=== PATIENT | female | born 1990 | race Two or more races ===

== ENCOUNTER 2023-09-17 19:55 | Emergency (ER) | payer OTHER ==
[~2023-09-17] VITALS: Ht 167.6 cm; Wt 104.0 kg
[2023-09-17] MEDS ORDERED: ACETAMINOPHEN 500 MG TAB PO ONE (20:15)
[2023-09-17] MEDS ORDERED: ONDANSETRON HCL 4 MG/2 ML VIAL IM ONE (20:30)
[2023-09-17 21:41] VITALS: BP 129/80
[2023-09-17 21:42] VITALS: PULSE 107; RESP 20; O2SAT 94
[2023-09-17 21:42] LABS: Alanine Aminotransferase 11 U/L (7-40); Albumin 4.6 g/dL (3.2-4.8); Alkaline Phosphatase 105 U/L (46-116); Anion Gap 9 (5-15); Aspartate Aminotransferase 8 U/L (13-40); BUN/Creatinine Ratio 6.4 (10.0-20.0); Blood Urea Nitrogen 5 mg/dL (9-23); Calcium 9.6 mg/dL (8.7-10.4); Carbon Dioxide 23 mmol/L (20-30); Chloride 107 mmol/L (98-107); Lipase 58 U/L (12-53); Potassium 3.9 mmol/L (3.5-5.1); Sodium 139 mmol/L (136-145)
[2023-09-17 21:43] LABS: Bilirubin, Total 0.5 mg/dL (0.2-1.0); Total Protein 8.4 g/dL (5.7-8.2)
[2023-09-17 21:49] VITALS: TEMP 98.8
[2023-09-17 21:50] LABS: Basophils # (auto) 0 10 ^3/uL (0-0.2); Basophils % (auto) 0.5 % (0.0-2.0); Eosinophils # (auto) 0.1 10 ^3/uL (0-0.8); Eosinophils % (auto) 2.7 % (0.0-7.0); Hematocrit 41.5 % (36.0-46.0); Hemoglobin 13.9 g/dL (12.2-16.2); Lymphocytes # (auto) 1.3 10 ^3/uL (0.4-5.4); Lymphocytes % (auto) 23.5 % (10.0-50.0); Mean Corpuscular Hemoglobin 30.2 pg (28.0-32.0); Mean Corpuscular Hgb Conc. 33.5 g/dL (32.0-36.0); Mean Corpuscular Volume 90.1 fL (80.0-100.0); Monocytes # (auto) 0.4 10 ^3/uL (0-1.3); Monocytes % (auto) 8.2 % (0.0-12.0); Neutrophils # (auto) 3.5 10 ^3/uL (1.6-8.6); Neutrophils % (auto) 65.1 % (37.0-80.0); Nucleated Red Blood Cells % 0.7 %; Red Cell Distribution Width 14.9 % (11.8-14.3); White Blood Cell 5.4 10^3/uL (4.4-10.8)
[2023-09-17 22:35] LABS: Glucose 84 mg/dL (74-106)
== END 2023-09-18 01:05 | disposition left against medical advice (07) ==
LOC: ER 19:57
DX: R10.13 Epigastric pain (principal); R10.2 Pelvic and perineal pain; R11.2 Nausea with vomiting, unspecified
CPT/HCPCS: 36415; 80053; 83690; 84702; 85025; 96372; 99283; J2405

== ENCOUNTER 2024-04-03 14:23 | Emergency (ER) | payer OTHER ==
[~2024-04-03] VITALS: Ht 162.6 cm; Wt 101.9 kg
[2024-04-03 15:49] LABS: Basophils # (auto) 0.1 10 ^3/uL (0-0.2); Eosinophils # (auto) 0.1 10 ^3/uL (0-0.8); Hemoglobin 13.1 g/dL (12.2-16.2); Lymphocytes # (auto) 1.8 10 ^3/uL (0.4-5.4); Mean Corpuscular Hemoglobin 28.8 pg (28.0-32.0); Monocytes # (auto) 0.5 10 ^3/uL (0-1.3); Red Cell Distribution Width 14.1 % (11.8-14.3); White Blood Cell 7.5 10^3/uL (4.4-10.8)
[2024-04-03 15:51] LABS: Basophils % (auto) 1.1 % (0.0-2.0); Eosinophils % (auto) 0.8 % (0.0-7.0); Hematocrit 40.5 % (36.0-46.0); Lymphocytes % (auto) 24.3 % (10.0-50.0); Mean Corpuscular Hgb Conc. 32.4 g/dL (32.0-36.0); Mean Corpuscular Volume 88.9 fL (80.0-100.0); Monocytes % (auto) 7.1 % (0.0-12.0); Neutrophils % (auto) 66.7 % (37.0-80.0); Red Blood Cells 4.56 10^6/uL (4.0-5.20)
[2024-04-03 15:58] LABS: Alanine Aminotransferase 12 U/L (7-40); Albumin 4.7 g/dL (3.2-4.8); Alkaline Phosphatase 82 U/L (46-116); Anion Gap 11 (5-15); Aspartate Aminotransferase 21 U/L (13-40); BUN/Creatinine Ratio 9.9 (10.0-20.0); Blood Urea Nitrogen 7 mg/dL (9-23); Calcium 9.7 mg/dL (8.5-10.1); Carbon Dioxide 23 mmol/L (20-30); Chloride 105 mmol/L (98-107); Glucose 92 mg/dL (74-106); Potassium 4.1 mmol/L (3.5-5.1); Sodium 139 mmol/L (136-145); Total Protein 8.5 g/dL (5.7-8.2)
[2024-04-03 17:38] VITALS: BP 154/79; PULSE 88; RESP 16; TEMP 99.1; O2SAT 100
[2024-04-03] MEDS ORDERED: ATEN-60 PO (21:42)
[2024-04-03] MEDS: ATENOLOL 25 MG TAB PO ONE (22:06)
== END 2024-04-03 22:06 | disposition home or self-care (01) ==
LOC: ER 14:23
DX: R00.2 Palpitations (principal); F41.9 Anxiety disorder, unspecified
CPT/HCPCS: 36415; 71045; 80053; 84484; 85025; 93005

== ENCOUNTER 2024-06-28 20:46 | Emergency (ER) | payer OTHER ==
[~2024-06-28 20:46] MED LIST: ATEN-60 PO
== END 2024-06-28 20:58 | disposition left against medical advice (07) ==
LOC: ER 20:46
DX: R07.0 Pain in throat (principal); Z53.21 Procedure and treatment not carried out due to patient leaving prior to being seen by health care provider

== ENCOUNTER 2025-07-14 22:51 | Inpatient (IN) | payer OTHER ==
[~2025-07-14] VITALS: Ht 162.6 cm; Wt 109.4 kg
--- NOTE | 2025-07-15 00:22 | ED.PDOC ---
GI ASSESSMENT HPI Comments 34-year-old female who came to ER for abdominal pain. Patient states for the past 3 days, she has been having cramping abdominal pain, associated with bouts of nausea vomiting and diarrhea. Earlier today she noted bright red blood with her stools. She went to urgent Care for checkup, found out that she is cu rrently , , approximately 4-5 weeks by LMP. Tested also positive for UTI, hyponatremia and hypokalemia. She denies any vaginal bleeding REVIEW OF SYSTEMS: No fever, no chills, or fatigue HEENT: No sore throat, no earache, no congestion, no neck pain. Cardiac: No chest pain. No palpitations. Lungs: No shortness of breath, no cough. GI: (+) nausea, (+) vomiting, (+) diarrhea, no constipation, (+) abdominal pain, (+) hematochezia : No dysuria, frequency, or urgency. No hematuria. Musculoskeletal: No joint pain , no joint swelling, no extremity edema. Skin: No rash, no itching. Neuro: No headache, no dizziness, no weakness Physical exam General: Awake, alert and oriented. No acute distress. Skin: Skin in warm, dry and intact. Appropriate color for ethnicity. Nailbeds pink with no cyanosis. HEENT: The head is normocephalic and atraumatic. Conjunctivae are clear without exudates or hemorrhage. Sclera is non-icteric. EOM are intact. No signs of nystagmus. Eyelids are normal in appearance without swelling or lesions. Oral mucosa is pink and moist Neck: The neck is supple with normal range of motion. No JVD. Cardiac: Heart rate and rhythm are normal. No murmurs, gallops, or rubs are auscultated. Respiratory: No signs of respiratory distress. Lung sounds are clear in all lobes bilaterally without rales, rhonchi, or wheezes. Abdominal: Abdomen is soft, non-tender without distention. Bowel sounds are present and normoactive in all four quadrants. Extremities: Upper and lower extremities are atraumatic in appearance without deformity or edema. Neurological: The patient is awake, alert and oriented to person, place, and time with normal speech. Speech is clear. There is no facial asymmetry. Psychiatric: Appropriate mood and affect. Good judgement and insight. No visual or auditory hallucinations. Chief Complaint: Abdominal Pain Time Seen by MD: 00:21 Reviewed Notes: Nurses Notes Allergies: Coded Allergies: NO KNOWN ALLERGIES (Unverified , 09/17/23) Home Meds Active Scripts Atenolol (Atenolol) 25 Mg Tab, 1 TAB PO DAILY, #90 TAB 3 Refills Prov:OTIS RODGERS MD 04/03/24 Information Source: Patient Mode of Arrival: Ambulatory Timing: Days Duration: Intermittent Quality: Cramping Past Medical History PAST MEDICAL HISTORY: Denies Surgical History: SENIOR OPERATIONS MANAGER History: No Pertinent SENIOR OPERATIONS MANAGER History 8 Para 5 LMP June 09, 2025 Family History Family History: Reviewed,noncontributory to illness, No family hx of Cancer, No family hx of DM, No family hx of Heart macy, No family hx of HTN, No family hx ofKidney macy, No family hx of Liver macy, No family hx of Lung macy, No family hx of Stroke Social History Smoker: Non-Smoker Alcohol: Denies ETOH Use Drugs: Denies Drug Use Lives In: Home Was a procedure done? Was a procedure done?: No GI differential Dx Differential Diagnosis: Threatened , Diverticular disease, Gastritis/PUD, Gastroenteritis, GI hemorrhage, Ischemic Bowel, Pancreatitis, UTI, Urolithiasis, , Anemia X-Ray, Labs, Meds, VS Vital Signs Date Time Temp Pulse Resp B/P (MAP) Pulse Ox O2 Delivery O2 Flow Rate FiO2 07/15/25 04:35 97.8 80 17 123/73 (90) 98 97.8 07/15/25 02:16 98.2 82 18 148/85 (106) 98 98.2 07/15/25 02:16 82 18 98 Room Air* 0 21 07/14/25 22:51 98.5 98 18 125/74 96 98.5 Lab Test 07/15/25 00:27 Range/Units White Blood Count 7.4 4.4-10.8 10^3/uL Red Blood Count 3.93 L 4.0-5.20 10^6/uL Hemoglobin 12.4 12.2-16.2 g/dL Hematocrit 35.8 L 36.0-46.0 % Mean Corpuscular Volume 91.3 80.0-100.0 fL Mean Corpuscular Hemoglobin 31.5 28.0-32.0 pg Mean Corpuscular Hemoglobin Concent 34.5 32.0-36.0 g/dL Red Cell Distribution Width 15.8 H 11.8-14.3 % Platelet Count 385 140-450 10^3/uL Mean Platelet Volume 6.9 6.9-10.8 fL Neutrophils (%) (Auto) 67.7 37.0-80.0 % Lymphocytes (%) (Auto) 18.4 10.0-50.0 % Monocytes (%) (Auto) 11.4 0.0-12.0 % Eosinophils (%) (Auto) 2.1 0.0-7.0 % Basophils (%) (Auto) 0.4 0.0-2.0 % Neutrophils # (Auto) 5.0 1.6-8.6 10 ^3/uL Lymphocytes # (Auto) 1.4 0.4-5.4 10 ^3/uL Monocytes # (Auto) 0.8 0-1.3 10 ^3/uL Eosinophils # (Auto) 0.2 0-0.8 10 ^3/uL Basophils # (Auto) 0 0-0.2 10 ^3/uL Nucleated Red Blood Cells 0.1 % Sodium Level 134 L 136-145 mmol/L Potassium Level 2.8 L 3.5-5.1 mmol/L Chloride Level 104 98-107 mmol/L Carbon Dioxide Level 21 20-31 mmol/L Anion Gap 9 5-15 Blood Urea Nitrogen < 5 L 9-23 mg/dL Creatinine 0.68 0.550-1.02 mg/dL Glomerular Filtration Rate Calc 116 >90 mL/min BUN/Creatinine Ratio 7.4 L 10.0-20.0 Serum Glucose 107 H 74-106 mg/dL Calcium Level 8.4 L 8.7-10.4 mg/dL Lipase 44 12-53 U/L Beta HCG, Quantitative 3109.4 H 1.5-4.2 mIU/mL Current Medications Medications (Trade) Dose Ordered Sig/Aviva Route Start Time Stop Time Status Last Admin Ondansetron HCl (Zofran) 4 mg ONCE ONCE IV 07/15/25 00:15 07/15/25 00:17 DC 07/15/25 02:43 Sodium Chloride 1,000 ml @ 1,000 mls/hr Q1H ONCE IV 07/15/25 00:15 07/15/25 01:14 DC 07/15/25 02:41 Potassium Chloride 100 ml @ 50 mls/hr ONCE ONCE IV 07/15/25 02:45 07/15/25 04:44 DC 07/15/25 04:48 OB US < 14 wks: 1. Intrauterine gestational sac with sonographic age of 5 weeks and 5 days. No heart rate is noted at this time although this likely reflects early stages however demise is not entirely excluded. Time of 1ST Reevaluation: 00:17 Reevaluation 1ST: Unchanged Patient Education/Counseling: Need For Follow Up Family Education/Counseling: No Family Present SEPSIS Sepsis Screen Date sepsis recognized/suspect: Jul 14, 2025 Time Sepsis recognized/suspect: 2250 Recent Procedure: No On Antibiotic Therapy: No Respiratory Rate >20: No Heart Rate >90: Yes Temp<36 C (96.8 F) or >38.3 C: No SBP <90 or MAP <65 mmHG: No New Acute Mental Status Change: No Is the patient on CPAP, BIPAP,: No Physician Orders Urinalysis (07/15/25 00:13) Saline Lock (07/15/25 00:13) Ob Ultrasound Comp Less 14wks (07/15/25 00:13) Ob Trans Vaginal Us (07/15/25 ) Electrocardigram (07/15/25 05:13) Admit (07/15/25 05:31) Rhythm Strips Once Every Shift (07/15/25 05:31) Hostage Negotiator For 24 Hours (07/15/25 05:31) Notify Md Of Changes From Base (07/15/25 05:31) Clear Liq Diet (07/15/25 Breakfast) Lactated Ringer's (07/15/25 05:45) Potassium Er Tablet (Klor-Con Tablet) (07/15/25 10:00) Promethazine Plain Syrup (Phenergan Plai (07/15/25 05:45) Metoclopramide Injection (Reglan Injecti (07/15/25 05:45) Comprehensive Metabolic Panel (07/16/25 08:00) Bedrest With Bathroom Privileg (07/15/25 05:31) Cefazolin 1gm/50ml (Ancef) (07/15/25 06:00) Vital Signs Date Time Temp Pulse Resp B/P (MAP) Pulse Ox O2 Delivery O2 Flow Rate FiO2 07/15/25 04:35 97.8 80 17 123/73 (90) 98 97.8 07/15/25 02:16 98.2 82 18 148/85 (106) 98 98.2 07/15/25 02:16 82 18 98 Room Air* 0 21 07/14/25 22:51 98.5 98 18 125/74 96 98.5 Laboratory Tests Test 07/15/25 00:27 White Blood Count 7.4 10^3/uL (4.4-10.8) Medications Medications Dose Ordered Sig/Aviva Route Start Time Stop Time Status Last Admin Dose Admin Ondansetron HCl 4 mg ONCE ONCE IV 07/15/25 00:15 07/15/25 00:17 DC 07/15/25 02:43 Potassium Chloride 100 ml @ 50 mls/hr ONCE ONCE IV 07/15/25 02:45 07/15/25 04:44 DC 07/15/25 04:48 Sodium Chloride 1,000 ml @ 1,000 mls/hr Q1H ONCE IV 07/15/25 00:15 07/15/25 01:14 DC 07/15/25 02:41 Departure 1 Departure Time of Disposition: 02:32 Impression: Primary Impression: Intractable nausea and vomiting Additional Impressions: Hypokalemia Disposition: ADMITTED INPATIENT Condition: Stable Comments Patient admitted to hospitalist service for further treatment, evaluation and monitoring. Urinalysis pending Discussed with Dr. Andres. Critical Care Note Critical Care Time?: No Stability Stability form required: No Heart Score Heart Score: Heart Score Response (Comments) Value History N/A 0 EKG N/A 0 Age N/A 0 Risk Factors N/A 0 Troponin N/A 0 Total 0 I personally scribed for COLIN CELAYA MD ([email or web address]) on 07/15/25 at 00:22. Electronically submitted by Jr Hyman ([email or web address]). COLIN CELAYA MD Jul 15, 2025 00:22
[2025-07-15 00:41] LABS: Hematocrit 35.8 % (36.0-46.0); Hemoglobin 12.4 g/dL (12.2-16.2); Mean Corpuscular Hemoglobin 31.5 pg (28.0-32.0); Mean Corpuscular Volume 91.3 fL (80.0-100.0); Nucleated Red Blood Cells % 0.1 %
[2025-07-15 00:43] LABS: Chloride 104 mmol/L (98-107)
[2025-07-15 00:44] LABS: Anion Gap 9 (5-15); Carbon Dioxide 21 mmol/L (20-31)
[2025-07-15 00:50] LABS: Lipase 44 U/L (12-53)
[2025-07-15 00:53] LABS: BUN/Creatinine Ratio 7.4 (10.0-20.0); Blood Urea Nitrogen < 5 mg/dL (9-23); Glucose 107 mg/dL (74-106); Potassium 2.8 mmol/L (3.5-5.1); Sodium 134 mmol/L (136-145)
[2025-07-15 00:54] LABS: Calcium 8.4 mg/dL (8.7-10.4)
[2025-07-15 02:16] VITALS: PULSE 82; RESP 18; O2SAT 98
[2025-07-15] MEDS: SODIUM CHLORIDE 0.9% 1,000 ML IV ONE (02:41)
[2025-07-15] MEDS: ONDANSETRON HCL 4 MG/2 ML VIAL IV ONE (02:43)
--- NOTE | 2025-07-15 02:58 | DVH ---
OB ULTRASOUND <14 WEEKS: HISTORY: Pelvic pain, positive TECHNIQUE: Multiple real-time grayscale sonographic images of the pelvis with duplex Doppler color f low, spectral and M-mode analysis. FINDINGS: Uterus measures 10.5 x 5.9 x 5.2 cm. Free fluid is noted within the cul-de-sac. Gestational sac measures 0.7 cm and and CRL measures 0.2 cm. Findings correspond with gestational son ographic age of 5 weeks and 5 days. No heart rate is noted at this time. ALETHEA of 03/12/26 Right ovary measures 3.4 x 2.6 x 2.5 cm and left ovary measures 2.8 x 2.2 x 1.2 cm. Normal vascular f low is noted within bilateral ovaries. IMPRESSION: 1. Intrauterine gestational sac with sonographic age of 5 weeks and 5 days. No heart rate is no thad at this time although this likely reflects early stages however demise is not en tirely excluded.
[2025-07-15] MEDS: POTASSIUM CHL 20MEQ/100ML 100 ML IV ONE (04:48)
[2025-07-15] MEDS ORDERED: METOCLOPRAMIDE HCL 5MG/ml INJ 2ml VIAL IV PRN (05:45)
[2025-07-15] MEDS ORDERED: PROMETHAZINE HCL 6.25 MG/5 ML ORAL SYRUP PO PRN (05:45)
[2025-07-15] MEDS: LACTATED RINGER'S 1,000 ML IV ONE (05:48)
[2025-07-15] MEDS: ceFAZolin 1GM/50ML 50 ML IV SCH (05:49)
[2025-07-15 06:14] LABS: Urine Protein, UAD 1+ (Negative)
[2025-07-15] MEDS: POTASSIUM CHL 20 Meq TABLET PO SCH (12:07)
--- NOTE | 2025-07-15 12:21 | DVHPN2 ---
Visit Coding OBGYN Date of Service: Jul 15, 2025 Billing Provider: JESS PARKS DO PIPE STEM REPAIRER Common Visit Codes: [id number] OBS CARE (HIGH) JESS PARKS DO Jul 15, 2025 12:21
--- NOTE | 2025-07-15 12:32 | DVHHP ---
ADMIT DATE: 07/15/2025 CHIEF COMPLAINT: Nausea, vomiting, fatigue, dehydration. HISTORY OF PRESENT ILLNESS: The patient is a 34-year-old 8, para 5 with estimated gestational age of 5 weeks, admitted for UTI, hypokalemia, hyperemesis, dehydration. The patient is currently 5 weeks' and has not seen any FORESTRY AID. PAST MEDICAL HISTORY: Significant for heart murmur. PAST SURGICAL HISTORY: Cardiac surgery as an infant. SOCIAL HISTORY: Denies any use of drugs. FAMILY HISTORY: Unremarkable. ALLERGIES: No known drug allergies. REVIEW OF SYSTEMS: Consistent with HPI. PHYSICAL EXAMINATION: VITAL SIGNS: At the time of this admission are stable, afebrile. HEENT: Within normal limits. CARDIOVASCULAR: Regular rate and rhythm. LUNGS: Clear to auscultation. BREASTS: Symmetrical. No masses. ABDOMEN: Soft, nontender. PELVIC: External genitalia within normal limits. Vagina normal. No bleeding noted. Nontender. EXTREMITIES: No clubbing, cyanosis or edema. IMPRESSION: * Hyperemesis gravidarum, dehydration. * Hypokalemia. * UTI. * Morbid obesity. * Early , 5 weeks' gestation. ASSESSMENT: IV hydration, supportive care, supplement potassium; the patient was p.o. potassium. Dr. Parry will see the patient on 07/16, he will be the on-call physician. DO RUFINA Mcpherson/TOREY TID: [id number] RECEIPT: [id number]
[2025-07-15 14:45] VITALS: BP 124/75; PULSE 83; RESP 18; TEMP 98.2; O2SAT 100
[2025-07-15 15:01] VITALS: BP 124/75; PULSE 83; RESP 18; TEMP 98.2; O2SAT 100
[2025-07-15 17:00] VITALS: BP 117/73; PULSE 88; RESP 18; TEMP 98; O2SAT 97
[2025-07-15] MEDS: SODIUM CHLORIDE 0.9% 1,000 ML IV SCH (19:00)
[2025-07-15 20:00] VITALS: PULSE 102; PULSE 91; RESP 17; O2SAT 100
[2025-07-15 21:00] VITALS: BP 101/55; PULSE 91; RESP 17; TEMP 97.9; O2SAT 100
[2025-07-16] MEDS: ACETAMINOPHEN 325 MG TAB PO PRN (03:34)
[2025-07-16 08:00] VITALS: PULSE 76; PULSE 90; RESP 18; O2SAT 100
[2025-07-16] MEDS: POTASSIUM CHL 20MEQ/100ML 100 ML IV SCH (08:15)
--- NOTE | 2025-07-16 08:56 | DVHPN2 ---
Subjective Progress Notes Subjective 34y Admitted w/ acute dehydration secondary to N/V and diarrhea x 3 days Abd pain, cramping, now resolved. Last emesis x > 48hr ago Tolerating regular diet Diarrhea still present but improving She is approx 5 wk based on LMP c/w early US (no pole seen yet on US, GS only) Denies vaginal bleeding c/o pain w/ urination "burning" Objective PHYSICAL EXAM Physical Exam: Obese. NAD Abd Soft, no RUQ tenderness Ext no edema, neg jayshree sign Pelvic deferred Vital Signs and I&O Vital Signs Date Time Temp Pulse Resp B/P (MAP) Pulse Ox O2 Delivery O2 Flow Rate FiO2 07/15/25 21:00 97.9 91 17 101/55 (70) 100 97.9 07/15/25 20:00 Room Air* 0 21 Intake and Output 07/16/25 07:00 Intake Total 1585 ml Output Total 300 ml Balance 1285 ml Intake Oral 1585 ml Output Urine Total 300 ml # Voids 2 # Bowel Movements 3 Lab results Laboratory Tests Test 07/15/25 00:27 07/15/25 02:05 Range/Units White Blood Count 7.4 4.4-10.8 10^3/uL Red Blood Count 3.93 L 4.0-5.20 10^6/uL Hemoglobin 12.4 12.2-16.2 g/dL Hematocrit 35.8 L 36.0-46.0 % Mean Corpuscular Volume 91.3 80.0-100.0 fL Mean Corpuscular Hemoglobin 31.5 28.0-32.0 pg Mean Corpuscular Hemoglobin Concent 34.5 32.0-36.0 g/dL Red Cell Distribution Width 15.8 H 11.8-14.3 % Platelet Count 385 140-450 10^3/uL Mean Platelet Volume 6.9 6.9-10.8 fL Neutrophils (%) (Auto) 67.7 37.0-80.0 % Lymphocytes (%) (Auto) 18.4 10.0-50.0 % Monocytes (%) (Auto) 11.4 0.0-12.0 % Eosinophils (%) (Auto) 2.1 0.0-7.0 % Basophils (%) (Auto) 0.4 0.0-2.0 % Neutrophils # (Auto) 5.0 1.6-8.6 10 ^3/uL Lymphocytes # (Auto) 1.4 0.4-5.4 10 ^3/uL Monocytes # (Auto) 0.8 0-1.3 10 ^3/uL Eosinophils # (Auto) 0.2 0-0.8 10 ^3/uL Basophils # (Auto) 0 0-0.2 10 ^3/uL Nucleated Red Blood Cells 0.1 % Sodium Level 134 L 136-145 mmol/L Potassium Level 2.8 L 3.5-5.1 mmol/L Chloride Level 104 98-107 mmol/L Carbon Dioxide Level 21 20-31 mmol/L Anion Gap 9 5-15 Blood Urea Nitrogen < 5 L 9-23 mg/dL Creatinine 0.68 0.550-1.02 mg/dL Glomerular Filtration Rate Calc 116 >90 mL/min BUN/Creatinine Ratio 7.4 L 10.0-20.0 Serum Glucose 107 H 74-106 mg/dL Calcium Level 8.4 L 8.7-10.4 mg/dL Lipase 44 12-53 U/L Beta HCG, Quantitative 3109.4 H 1.5-4.2 mIU/mL Urine Color Yellow Yellow Urine Clarity Turbid H Clear Urine pH 6.0 5.0-9.0 Urine Specific [place] 1.017 1.001-1.035 Urine Protein 1+ H Negative Urine Ketones 1+ H Negative Urine Blood 2+ H Negative /uL Urine Nitrite Negative Negative Urine Bilirubin Negative Negative Urine Urobilinogen Normal Negative mg/dL Urine Leukocyte Esterase 3+ Negative /uL Urine RBC 8 0 - 4 /hpf Urine Microscopic WBC 514 H 0-5 /HPF Urine Squamous Epithelial Cells Many <5 /hpf Urine Bacteria None seen None Seen /hpf Urine Mucus Few None Seen Urine Glucose Normal Normal mg/dL Assessment and Plan ASSESSMENT AND PLAN Assessment and Plan #Acute N/V and diarrhea, likely gastroenteritis, improving - Continue IV fluids and PO antiemetics as needed - Continue regular diet #Hypokalemia, K+ 2.8 - Replace K+ with K rider 40meq x 2 today - Repeat labs #Abd pain - Check Labs, LFT's, does not appear to be acute cholecystitis by exam #Pyuria with dysuria, likely acute cystitis - Change to IV Rocephin, stop Ancef - Order UAC&S, Urine GC/CT ordered STAT - Rx Pyridium for acute dysuria #, incidental finding approx 5 wk EGA - Desires termination of , [facility] # Advanced Maternal age - Risks of aneuploidy, high risk preg discussed - Options for dx testing, genetic screening reviewed - Declined OB care, requesting TAB My orders: Orders - MUSA GALLOWAY DO Beta Hcg, Quantitative (07/16/25 08:00) Urinalysis W/Out Microscopic (07/16/25 08:00) Potassium Chl 20meq/100ml (07/16/25 08:15) Phenazopyridine Hcl Tablet (Pyridium Tab (07/16/25 12:00) Chlamydia/Gc Amplification (07/16/25 08:46) Urinalysis (07/16/25 08:46) Urine Bacterial Culture (07/16/25 08:46) Plan discussed with: Patient Visit Coding OBGYN Date of Service: Jul 16, 2025 Billing Provider: MUSA GALLOWAY DO FUEL ASSEMBLER Common Visit Codes: [id number] INP/OBS CARE(HIGH) MUSA GALLOWAY DO Jul 16, 2025 08:56
[2025-07-16 09:00] VITALS: BP 104/57; PULSE 76; RESP 18; TEMP 98.3; O2SAT 100
[2025-07-16] MEDS: cefTRIAXone 2GM/50ML D5W 50 ML IV ONE (09:00)
[2025-07-16] MEDS ORDERED: LOPERAMIDE HCL 2 MG CAP/TAB PO PRN (10:00)
[2025-07-16 11:38] LABS: Urine Budding Yeast OCCASIONAL /hpf (None Seen); Urine Protein, UAD TRACE (Negative)
[2025-07-16 12:41] LABS: Alanine Aminotransferase 16 U/L (7-40); Albumin 4.2 g/dL (3.2-4.8); Alkaline Phosphatase 74 U/L (46-116); Anion Gap 8 (5-15); Bilirubin, Total 0.3 mg/dL (0.2-1.0); Calcium 9.0 mg/dL (8.7-10.4); Carbon Dioxide 23 mmol/L (20-31); Glucose 85 mg/dL (74-106); Potassium 3.5 mmol/L (3.5-5.1); Sodium 139 mmol/L (136-145); Total Protein 7.2 g/dL (5.7-8.2)
[2025-07-16 12:42] LABS: BUN/Creatinine Ratio 8.6 (10.0-20.0); Blood Urea Nitrogen < 5 mg/dL (9-23); Chloride 108 mmol/L (98-107)
[2025-07-16 12:47] VITALS: BP 121/75; PULSE 98; RESP 18; TEMP 98.2; O2SAT 100
[2025-07-16] MEDS: PHENAZOPYRIDINE HCL 100 MG TAB PO SCH (13:01)
[2025-07-16] MEDS ORDERED: NITR-87 PO (13:38)
[2025-07-16] MEDS ORDERED: PROM25TA10 PO (13:38)
[2025-07-16] MEDS ORDERED: LOPE2CAP16 PO (13:38)
[2025-07-16] MEDS ORDERED: PREN-96 PO (13:38)
[2025-07-16] MEDS ORDERED: PHEN-1045 PO (13:38)
[2025-07-16] MEDS ORDERED: POTA-220 PO (13:38)
--- NOTE | 2025-07-16 13:47 | DVHDS2 ---
Physician Discharge Progress N Final Diagnosis: Acute dehydration Hypokalemia , incidental Acute N/V and diarrhea (gastroenteritis) Acute cystitis Operations or Procedures: Operations or Procedures IV hydration, OB ultrasound Commentary: Commentary Dehydration resolved, K+ replaced, normal K+ 3.5 upon discharge Discharged on oral K+ 20 hiren BID x 3 days. Diarrhea improving, continue loperamide 2mg PRN Acute cystitis s/p IV antibiotics x 24 hrs, discharged on PO antibiotics x 7 days N/V of vs N/V associated w/ GI distress, improving. Rx Promethazine outpatient PRN Rx vitamins F/U w/ Dr Andres this week for OB care HCG rising appropriately, approx 5-6 wk gest by LMP dating and early US ( sac seen) Condition on Discharge: Stable Disposition: Home Discharge Instructions: Diet: Regular Activity: Light activity Follow Up/Referral: Follow up w/ Dr Andres this week or with [facility] Medications: see eRx, Please verify transmission of meds Follow Up Care: Discharge Statement: "Patient was advised to return to the ER or call 911 if any headaches, dizz iness, shortness of breath, chest pain, abdominal pain, bleeding, fevers, or worsening of medical condition. Patient was counseled about treatment plan, medications, possible side effects, patientverbalized understanding. All questions were answered to the best of my ability. This discharge took greater then 30 minutes in planning, reviewing documentation, counseling the patient, and discussing with other team members." Visit Coding OBGYN Date of Service: Jul 16, 2025 Billing Provider: MUSA GALLOWAY DO TEXTILES PRINTER Common Visit Codes: [id number] DISCH DAY <30MIN MUSA GALLOWAY DO Jul 16, 2025 13:47
[2025-07-16 14:31] VITALS: BP 121/75; PULSE 98; RESP 18; TEMP 98.2; O2SAT 98
[2025-07-18 23:07] LABS: Chlamydia Trachomatis, NAA Negative (Negative); Neisseria gonorrhoeae, NAA Negative (Negative)
== END 2025-07-16 15:18 | disposition home or self-care (01) | DRG 566 ==
LOC: ER 22:51 → OVERFLOW 07-15 05:31 → TELE-WESTW 07-15 14:46
PROVIDERS: ADMIT Obstetrics & Gynecology; ATTEND Obstetrics & Gynecology
DX: O21.0 Mild hyperemesis gravidarum (principal); O23.11 Infections of bladder in pregnancy, first trimester; E86.0 Dehydration; K52.9 Noninfective gastroenteritis and colitis, unspecified; O99.281 Endocrine, nutritional and metabolic diseases complicating pregnancy, first trimester; O99.211 Obesity complicating pregnancy, first trimester; O99.611 Diseases of the digestive system complicating pregnancy, first trimester; E87.6 Hypokalemia; N30.00 Acute cystitis without hematuria; E66.01 Morbid (severe) obesity due to excess calories; Z3A.01 Less than 8 weeks gestation of pregnancy; Z79.899 Other long term (current) drug therapy
CPT/HCPCS: 36415; 76801; 76817; 80048; 80053; 81001; 83690; 84702; 85025; 87086; 87088; 87493; G0378; J2405; J3480; J7042

== ENCOUNTER 2025-11-28 11:41 | Outpatient (CLI) | payer MEDICAID ==
[~2025-11-28 11:41] MED LIST changes: -ATEN-60 PO; +LOPE2CAP16 PO; +NITR-87 PO; +PHEN-1045 PO; +POTA-220 PO; +PREN-96 PO; +PROM25TA10 PO
== END 2025-11-28 17:00 | disposition home or self-care (01) ==
LOC: XYW 11:41
PROVIDERS: ATTEND Licensed Practical Nurse
DX: I10 Essential (primary) hypertension (principal)
CPT/HCPCS: 93306